=== PATIENT | female | born 1945 | race African-American/Black ===

== ENCOUNTER 2018-07-28 17:10 | Emergency (ER) | payer MEDICARE ==
[2018-07-28] MEDS ORDERED: TETRACAINE HCL 0.5% OPH SOLN 4 ML OS ONE (17:39)
--- NOTE | 2018-07-28 17:47 | ER Document Report ---
ED Medical Screen (RME) - General Chief Complaint: High Blood Pressure Stated Complaint: BLURRED VISION, BLOOD PRESSURE ISSUES Time Seen by Provider: 07/28/18 17:37 TRAVEL OUTSIDE OF THE [place] IN LAST 30 DAYS: No - HPI Notes: 07/28/18 17:44 Patient is a 73-year-old female with a history of hypertension who presents to the emergency department complaining of blurriness to her left eye that is new for her. Patient is a very vague historian and has difficulty interpreting her symptoms when asked multiple times. She states that her posterior neck is sore, but no headache. She has no eye pain, but does have increased tearing. No floaters or light sensitivity. She was noted to have elevated blood pressure as well, but daughter states that she has 'white coat syndrome.' She otherwise has not had any other recent illness. She is eating and drinking without difficulty. Denies QUINONEZ, fever, URI, CP, SOB, Abd pain, or rash. I have treated and performed a rapid initial assessment of this patient. A comprehensive ED assessment and evaluation of the patient, analysis of test results and completion of medical decision making process will be conducted by additional ED providers. PHYSICAL EXAMINATION: GENERAL: Well-appearing, well-nourished and in no acute distress. A&Ox4. Answers questions appropriately. Pt appears comfortable. Eyes: PERRLA, EOMI. No purulence or surrounding erythema/swelling. LUNGS: Breath sounds clear to auscultation bilaterally and equal. No wheezes rales or rhonchi. HEART: Regular rate and rhythm without murmurs, rubs, gallops. Extremities: No cyanosis, clubbing, or edema b/l. NEUROLOGICAL: Normal speech, normal gait. Cranial nerves grossly intact. PSYCH: Normal mood, normal affect. - Related Data Allergies/Adverse Reactions: No Known Allergies Allergy (Verified 07/28/18 17:12) Past Medical History - Social History Frequency of alcohol use: None Drug Abuse: None - Past Medical History Cardiac Medical History: Reports: Hx Hypercholesterolemia, Hx Hypertension Renal/ Medical History: Denies: Hx Peritoneal Dialysis Psychiatric Medical History: Reports: Hx Depression Past Surgical History: Reports: Hx Hysterectomy, Hx Thyroid Surgery - partial ectomoy Physical Exam - Vital signs Vitals: Temp Pulse Resp BP Pulse Ox 98.1 F 98 16 189/86 H 95 07/28/18 17:23 04/06/19 17:23 07/28/18 17:23 07/28/18 17:23 07/28/18 17:23 Course - Vital Signs Vital signs: Temp Pulse Resp BP Pulse Ox 98.1 F 98 16 189/86 H 95 07/28/18 17:23 07/28/18 17:23 07/28/18 17:23 07/28/18 17:23 07/28/18 17:23
--- NOTE | 2018-07-28 19:11 | ER Document Report ---
ED General - General Chief Complaint: High Blood Pressure Stated Complaint: BLURRED VISION, BLOOD PRESSURE ISSUES Time Seen by Provider: 07/28/18 17:37 Primary Care Provider: JASON VEGA DO [ACTIVE STAFF] - 07/30/18 Notes: Patient is a 73-year-old female with past medical history of essential hyper tension, hyperlipidemia, cataracts removed from both eyes personally 1 year ago, who presents with 3 days of vision loss from her left eye. Patient came to the emergency department today because her daughter found out about the visual loss, brought the patient to an urgent care where she was referred to the emergency department due to her elevated blood pressure. 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 She states that symptoms were gradual in onset, relatively unchanged since that time. Regards them as being moderate in nature. Nothing has been noted to improve or worsen her symptoms. States that she has a history of whitecoat hypertension and that in general as long she takes her bl ood pressure medications her blood pressures are within normal ranges at home. Denies associated headache, neck pain, weakness, numbness or confusion. No trauma to the eyes. No history of glaucoma. TRAVEL OUTSIDE OF THE [place] IN LAST 30 DAYS: No - Related Data Allergies/Adverse Reactions: No Known Allergies Allergy (Verified 07/28/18 17:12) Past Medical History - General Information source: Patient, Relative - Social History Smoking Status: Never Smoker Frequency of alcohol use: None Drug Abuse: None Lives with: Spouse/Significant other Family History: Reviewed & Not Pertinent Patient has suicidal ideation: No Patient has homicidal ideation: No - Past Medical History Cardiac Medical History: Reports: Hx Hypercholesterolemia, Hx Hypertension Renal/ Medical History: Denies: Hx Peritoneal Dialysis Psychiatric Medical History: Reports: Hx Depression Past Surgical History: Reports: Hx Hysterectomy, Hx Thyroid Surgery - partial ectomoy Review of Systems - Review of Systems Notes: Constitutional: Negative for fever. HENT: Negative for sore throat. Eyes: Positive for visual changes. Cardiovascular: Negative for chest pain. Respiratory: Negative for shortness of breath. Gastrointestinal: Negative for abdominal pain, vomiting or diarrhea. Genitourinary: Negative for dysuria. Musculoskeletal: Negative for back pain. Skin: Negative for rash. Neurological: Negative for headaches, weakness or numbness. 10 point ROS negative except as marked above and in HPI. Physical Exam - Vital signs Vitals: Temp Pulse Resp BP Pulse Ox 98.1 F 98 16 189/86 H 95 07/28/18 17:23 07/28/18 17:23 07/28/18 17:23 07/28/18 17:23 07/28/18 17:23 Notes: PHYSICAL EXAMINATION: GENERAL: Well-appearing, well-nourished and in no acute distress. HEAD: Atraumatic, normocephalic. EYES: On examination patient's ocular pressure is 21 on the left, 19 on right. The patient has fully intact extraocular motions bilaterally. Pupillary reflex intact throughout. The patient seems to have mild vitreous hemorrhages bilaterally on bedside ultrasound. No evidence of retinal detachment. The patient does not have any evidence of a corneal abrasion or corneal trauma on examination. Visual acuity is 20/70 on the right and patient is unable to see any of the letters on the left. Visual [place] are intact without any evidence of a field cut. ENT: nares patent, oropharynx clear without exudates. Moist mucous membranes. NECK: Normal range of motion, supple without lymphadenopathy LUNGS: Breath sounds clear to auscultation bilaterally and equal. No wheezes rales or rhonchi. HEART: Regular rate and rhythm without murmurs ABDOMEN: Soft, nontender, normoactive bowel sounds. No guarding, no rebound. No masses appreciated. EXTREMITIES: Normal range of motion, no pitting or edema. No cyanosis. NEUROLOGICAL: Face symmetric. Tongue protrudes midline. Extraocular motions intact. Pupils are 2 mm and equally reactive. Normal speech, normal gait. 5 out of 5 strength in both the distal and proximal upper and lower extremities bilaterally. Sensation is grossly intact throughout. Finger to nose testing normal. Pronator drift normal. PSYCH: Normal mood, normal affect. SKIN: Warm, Dry, normal turgor, no rashes or lesions noted. - HEENT Visual acuity- Right eye: 20/70 Visual acuity- Left eye: none Visual acuity- Both eyes: 20/70 Corrective lenses worn: No - pt denies wearing glasses Course - Re-evaluation Re-evalutation: 07/28/18 19:07 Patient presents with blurred vision bilaterally worse on the left versus the right. Has been on going for 3 days. On examination patient's ocular pressure is 21 on the left, 19 on right. The patient has fully intact extraocular motions bilaterally. Pupillary reflex intact throughout. The patient seems to have mild vitreous hemorrhages bilaterally on bedside ultrasound. No evidence of retinal detachment. The patient does not have any evidence of a corneal abrasion or corneal trauma on examination. Visual acuity is 20/70 on the right and patient is unable to see any of the letters on the left. Visual [place] are intact without any evidence of a field cut. The exact etiology of her visual loss bilaterally is uncertain at this point it does not appear to be from acute angle glaucoma, globe rupture, acute stroke, and a very low suspicion that this is related to her blood pressure as family reports that she consistently has blood pressure in these ranges in the context of healthcare and usually it is within normal ranges at home when she is taking her blood pressure medicine which she has been taking. I have expressed to the patient and her family that I am uncertain of the exact cause of her visual acuity change but that she needs to follow-up rapidly with ophthalmology and I provided her a referral. I have asked that she be seen within the next 24-36 hours and the patient and family verbalized understanding of this care plan. At this time will discharge with return precautions and follow-up recommendations. Verbal discharge instructions given a the bedside and opportunity for questions given. Medication warnings reviewed. Patient is in agreement with this plan and has verbalized understanding of return precautions and the need for ophthalmology follow-up first thing Monday morning. - Vital Signs Vital signs: Temp Pulse Resp BP Pulse Ox 98.5 F 75 18 165/89 H 92 07/28/18 19:15 07/28/18 19:15 07/28/18 19:15 07/28/18 19:15 07/28/18 19:15 Discharge - Discharge Clinical Impression: Essential hypertension, Visual loss both eyes 20/70-160 Condition: Stable Disposition: HOME, SELF-CARE Additional Instructions: The exact cause of your visual loss is uncertain. You need to follow-up very closely with ophthalmology and a referral has been provided. Please contact them and request an appointment first thing on Monday. Please monitor your blood pressures at home to determine whether or not you continue to have significantly elevated blood pressures despite taking her normal home blood p ressure medications. Return if you have worsening of your vision, severe headache, weakness, numbness, vomiting or any other symptoms that are worrisome to you. Referrals: JASON VEGA DO [ACTIVE STAFF] - 07/30/18
[2018-07-28 19:17] VITALS: BP 165/89
== END 2018-07-28 19:20 | disposition home or self-care (01) ==
LOC: ER 17:10
DX: H54.3 Unqualified visual loss, both eyes (principal); I10 Essential (primary) hypertension; E78.5 Hyperlipidemia, unspecified; Z90.710 Acquired absence of both cervix and uterus
CPT/HCPCS: 99283; J3490